=== PATIENT | male | born 1980 | race African-American/Black ===

== ENCOUNTER 2020-11-10 19:31 | Emergency (ER) | payer OTHER ==
[~2020-11-10] VITALS: Ht 152.4 cm; Wt 62.6 kg
[2020-11-10 20:40] LABS: PLATELET COUNT 286 K/uL (142-355)
[2020-11-10 20:47] LABS: POTASSIUM 4.2 mmol/L (3.6-5.2)
[2020-11-10 20:53] LABS: PARTIAL THROMBOPLASTIN TIME 24.8 SECONDS (24.5-33.6)
[2020-11-10 22:05] VITALS: BP 124/77; TEMP 98.2
== END 2020-11-10 22:05 | disposition home or self-care (01) ==
LOC: ED 19:31
PROVIDERS: Hospitalist
DX: N20.0 Calculus of kidney (principal); R11.2 Nausea with vomiting, unspecified
CPT/HCPCS: 36415; 80048; 81000; 85027; 85610; 85730; 96360; 96365; 96375; 99284; J0696; J1170; J1885; J2405